=== PATIENT | female | born 1980 | race Caucasian/White ===

== ENCOUNTER → 2016-07-26 | Outpatient (REF) ==
--- NOTE | 2016-07-26 10:07 | REP ---
RIGHT SHOULDER, COMPLETE: 07/26/2016. Clinical history: Shoulder pain. No prior study. Findings: The AC and glenohumeral joints show minor degenerative change without fracture. There is no loose body. I see no widening of the AC joint or elevation of the clavicle. There is no abnormal soft-tissue calcification on these images. Scapular Y view shows normal relationship to the humeral head and glenoid. Scapula, ribs, clavicle and humeral head without fracture or destructive lesion. Impression: 1. Minor degenerative changes of the AC and glenohumeral joints. Signed by Umair Guy MD 07/26/2016 03:28 P
--- NOTE | 2016-07-26 10:08 | REP ---
LUMBOSACRAL SPINE PARTIAL: 07/26/2016 COMPARISON: 01/21/2016 CLINICAL HISTORY: Back pain. FINDINGS: Three views were provided. The AP view again shows no evidence of scoliosis. The pedicles, spinous, and transverse processes are grossly intact. SI joints, sacral ala, and foramina, as well as the visualized pelvic ring are unremarkable. Iliac wings intact. Lower thoracic vertebral levels and visualized ribs unremarkable. Right upper quadrant clips from prior cholecystectomy noted. The lateral view and coned lateral view show minor degenerative disc changes with marginal osteophytes from the L3-4 through L5-S1. There is slight disc space narrowing at L5-S1 with facet arthropathy at that level. The other disc spaces show only very minimal narrowing at L4-5. No compression deformity or destructive lesion at any level. IMPRESSION: 1. Some mild degenerative disc changes with slight narrowing at L5-S1 and L4-5 with facet arthropathy at L5-S1. 2. Slight loss of lordosis, unchanged. No compression deformity, destructive lesion, or other significant finding. Signed by Umair Guy MD 07/26/2016 03:28 P
== END ==
LOC: M SMT 08:59
PROVIDERS: ATTEND Internal Medicine
DX: Z02.71 Encounter for disability determination (principal)

== ENCOUNTER → 2020-12-22 | Outpatient (REF) ==
--- NOTE | 2020-12-22 14:17 | REP ---
INDICATION: BACK PAIN. COMPARISON: 07/26/2016 TECHNIQUE: Three views FINDINGS: Three views show vertebral body height and alignment to be unchanged. There is mild disc space narrowing status quo. The pedicles are again seen to be intact bilaterally. IMPRESSION: No significant change from the prior exam. <Electronically signed by Arya Keyes > 12/22/20 [id number]
== END ==
LOC: M PLAIMG 13:08
PROVIDERS: ATTEND Internal Medicine
DX: M54.5 Low back pain (principal)